=== PATIENT | female | born 1995 | race Two or more races ===

== ENCOUNTER 2020-08-13 13:46 | Emergency (ER) | payer OTHER ==
[~2020-08-13] VITALS: Ht 167.6 cm; Wt 78.1 kg
[2020-08-13] MEDS ORDERED: NITR100C2 PO (13:54)
[2020-08-13] MEDS ORDERED: NS 1,000 ML IV ONE (15:30)
[2020-08-13] MEDS ORDERED: ONDANSETRON 4MG/2ML VIAL IV ONE (15:30)
[2020-08-13 15:46] LABS: BASO % 0.5 % (0.0-1.0); EOS # 0.1 10^3/uL (0.0-0.5); EOS % 1.7 % (0.0-3.0); HEMATOCRIT 37.2 % (36.0-47.0); HEMOGLOBIN 12.6 g/dl (12.0-15.5); LYMPH # 2.5 10^3/uL (1.5-5.0); LYMPH % 37.1 % (24.0-44.0); MEAN CORPUSCULAR HEMOGLOBIN 29.7 pg (27.0-33.0); MEAN CORPUSCULAR HGB CONC 33.9 g/dl (32.0-36.5); MEAN CORPUSCULAR VOLUME 87.7 fl (80.0-96.0); MONO # 0.6 10^3/uL (0.0-0.8); MONO % 9.4 % (0.0-5.0); NEUTROPHILS # 3.4 10^3/uL (1.5-8.5); PLATELET COUNT, AUTOMATED 222 10^3/uL (150-450); RED BLOOD COUNT 4.24 10^6/uL (4.00-5.40); WHITE BLOOD COUNT 6.6 10^3/uL (4.0-10.0)
[2020-08-13 16:33] LABS: ALBUMIN 3.9 GM/DL (3.2-5.2); ALT/SGPT 12 U/L (12-78); BILIRUBIN,DIRECT < 0.1 MG/DL (0.0-0.2); BILIRUBIN,TOTAL 0.3 MG/DL (0.2-1.0); BLOOD UREA NITROGEN 9 MG/DL (7-18); CALCIUM LEVEL 8.9 MG/DL (8.5-10.1); CARBON DIOXIDE LEVEL 24 MEQ/L (21-32); CHLORIDE LEVEL 104 MEQ/L (98-107); GLOMERULAR FILTRATION RATE > 60.0 (>60); GLUCOSE, FASTING 77 MG/DL (70-100); HCG, SERUM QUANTITATIVE 119366 MIU/ML; LIPASE 117 U/L (73-393); POTASSIUM SERUM 3.4 MEQ/L (3.5-5.1); SODIUM LEVEL 137 MEQ/L (136-145); TOTAL PROTEIN 8.2 GM/DL (6.4-8.2)
[2020-08-13] MEDS ORDERED: METOCLOPRAMIDE INJ 10MG/2ML VIAL (J2765 PER 1) IV ONE (17:15)
--- NOTE | 2020-08-13 17:24 | REPVR ---
PROCEDURE INFORMATION: Exam: US First Trimester, Transabdominal Exam date and time: 08/13/2020 5:19 PM Age: 25 years old Clinical indication: complicated by abdominal or pelvic pain; Lower; First trimester; Gestational age or lmp: 6; ; Additional info: Pelvic pain, no vaginal bleeding TECHNIQUE: Imaging protocol: Real-time transabdominal obstetrical ultrasound of the maternal pelvis and a first trimester , less than 14 weeks 0 days, with image documentation. COMPARISON: No relevant prior studies available. FINDINGS: Gestation: Single gestational sac in the uterus. Single fetus in the gestational sac with a crown-rump length measuring 7 mm. Embryonic/ heart rate: heart rate 134 bpm. Placenta: Left lateral subchorionic hemorrhage demonstrated measuring 3.3 x 1.7 x 1.1 cm. Amniotic fluid: Amniotic fluid is normal for gestational age. BIOMETRY: Gestational age (AUA): Gestational age based on crown-rump length is 6 weeks 4 days in this patient with unknown menstrual dates. MATERNAL: Uterus: Multiple hypoechoic foci demonstrated in the uterus measuring up to 1.2 x 0.71.3 cm in 1.2 x 1 x 1.2 cm. Findings consistent with fibroids. Cervix: Unremarkable. Right adnexa: Unremarkable. Left adnexa: Unremarkable. Intraperitoneal space: No intraperitoneal free fluid. IMPRESSION: 1. Multiple uterine fibroids. 2. Subchorionic hemorrhage as described above. 3. Otherwise unremarkable scan at 6 weeks 4 days. Electronically signed by: Chidi Penaloza On 08/13/2020 17:24:06 PM
[2020-08-13] MEDS ORDERED: REGL10TA6 PO (18:30)
[2020-08-13 18:52] VITALS: BP 109/63
== END 2020-08-13 18:55 | disposition home or self-care (01) ==
LOC: M ED 13:46
DX: O21.0 Mild hyperemesis gravidarum (principal); O36.8911 Maternal care for other specified fetal problems, first trimester, fetus 1; O34.11 Maternal care for benign tumor of corpus uteri, first trimester; Z3A.01 Less than 8 weeks gestation of pregnancy; Z87.440 Personal history of urinary (tract) infections; Z87.42 Personal history of other diseases of the female genital tract
CPT/HCPCS: 76801; 80048; 80076; 83690; 84702; 85025; 96361; 96374; 96375; 99284; J2405; J2765